=== PATIENT | female | born 1945 | race Caucasian/White ===

== ENCOUNTER → 2023-05-04 08:05 | Outpatient (CLI) | payer OTHER, SELFPAY ==
--- NOTE | ~2023-05-04 | MR_ITS ---
EXAMINATION: MR thoracic spine wo con DATE: 05/04/2023 09:07 INDICATION: Compression fracture of thoracic spine. TECHNIQUE: Magnetic resonance imaging (MRI) of the thoracic spine was performed without intravenous c ontrast. COMPARISON: None FINDINGS: There is 14 degrees levoscoliosis of thoracolumbar spine. There is a burst fracture of T9 i nferior endplate with edema-like marrow signal intensity without significant height loss. There is a burst fracture of T10 superior endplate with 1/5 loss of height, retropulsion of bone 2 mm into centr al spinal canal, and edema-like marrow signal intensity. There is a burst fracture of superior endpla te of T11 with 1/5 loss of height and edema-like marrow signal intensity. There is a burst fracture o f superior endplate of T12 with 1/5 loss of height, retropulsion of bone 2 mm into central spinal can al, and edema-like marrow signal intensity. There is mildly decreased disc height at T6-T7 and T12-L1 . There is multilevel facet joint osteoarthritis. On the right, there is mild neural foraminal stenos is at T9-T10 and T10-T11. On the left, there is mild neural foraminal stenosis at T7-T8, T8-T9, T9-T1 0, and T10-T11. At T1-T2, there is a central extrusion with mild central canal stenosis. At T9-T10, t here is a central extrusion with mild central canal stenosis. At T10-T11, the disc is bulging with mi ld central canal stenosis. The spinal cord signal intensity is normal. The conus medullaris is at L1. At there is a 6.4 cm cyst in left kidney. There are nodules in right lung measuring up to 1.6 cm in right lower lobe. IMPRESSION: 1. Right lung nodules suspicious for malignancy. Noncontrast chest CT is recommended. 2. Burst fractures of T9, T10, T11, and T12, likely acute or subacute. 3. Mild thoracic spondylosis. Reviewed, dictated and finalized at location A. HARDENER IMPRESSION: 1. Right lung nodules suspicious for malignancy. Noncontrast chest CT is recomm ended. 2. Burst fractures of T9, T10, T11, and T12, likely acute or subacute. 3. Mild thoracic spondylosis.
--- NOTE | ~2023-05-04 | MR_ITS ---
EXAMINATION: MR lumbar spine wo con DATE: 05/04/2023 09:13 INDICATION: Compression fracture, lumbar spine. Back pain. TECHNIQUE: Magnetic resonance imaging (MRI) of the lumbar spine was performed without intravenous con trast. Sequences included sagittal T2-weighted FSE, sagittal T2-weighted FS FSE, sagittal T1-weighted FSE, and axial T2-weighted FSE. COMPARISON: None FINDINGS: There is 13 degrees dextroscoliosis of lumbar spine. There is 3 mm anterolisthesis of L3 on L4, 5 mm anterolisthesis of L4 on L5, and 3 mm retrolisthesis of L5 on S1. Vertebral body heights ar e normal in lumbar spine. There is severely decreased disc height at L2-L3 and L3-L4, moderately decr eased disc height at L4-L5, and severely decreased disc height at L5-S1 with endplate remodeling. The distal spinal cord signal intensity is normal. The conus medullaris is at L1. The following disc lev els are specifically discussed: L1-L2: There is a central protrusion. There is moderate right and mild left facet joint osteoarthriti s. There is no neural foraminal stenosis. There is mild central canal stenosis. L2-L3: The disc is bulging and has an annular fissure. There is severe bilateral facet joint osteoart hritis. There is mild bilateral neural foraminal stenosis. There is mild central canal stenosis. L3-L4: The disc is bulging and has an annular fissure. There is severe bilateral facet joint osteoart hritis. There is mild bilateral neural foraminal stenosis. There is mild central canal stenosis. L4-L5: The disc is bulging. There is severe bilateral facet joint osteoarthritis. There is mild bilat eral neural foraminal stenosis. There is mild central canal stenosis. L5-S1: The disc is bulging and has an annular fissure. There is severe right and moderate left facet joint osteoarthritis. There is mild right and moderate left neural foraminal stenosis. There is mild central canal stenosis. IMPRESSION: 1. Severe lumbar spondylosis. 2. Lumbar dextroscoliosis. Reviewed, dictated and finalized at location A. [employer]
== END ==
PROVIDERS: PCP Nurse Practitioner Family
DX: S22.000A Wedge compression fracture of unspecified thoracic vertebra, initial encounter for closed fracture (principal); S32.000A Wedge compression fracture of unspecified lumbar vertebra, initial encounter for closed fracture; X58.XXXA Exposure to other specified factors, initial encounter; M47.896 Other spondylosis, lumbar region; M47.894 Other spondylosis, thoracic region; R91.8 Other nonspecific abnormal finding of lung field
CPT/HCPCS: 72146; 72148